=== PATIENT | female | born 1995 | race Caucasian/White ===

== ENCOUNTER 2016-05-31 09:53 | Outpatient (CLI) | payer BC, MEDICAID | END 2016-05-31 09:54 | disposition home or self-care (01) | DX: N63 Unspecified lump in breast (principal) ==

== ENCOUNTER 2016-06-03 13:08 | Outpatient (CLI) | payer BC, MEDICAID ==
[2016-06-03] MEDS ORDERED: BUPIVACAINE 0.25%-EPI 1:200000 PF 10 ML VIAL SUBQ ONE (15:16)
[2016-06-03] MEDS ORDERED: BUFFERED LIDOCAINE 10 ML SYRINGE IU ONE (15:16)
[2016-06-03] MEDS ORDERED: BUPIVACAINE 0.25%-EPI 1:200000 PF 30 ML VIAL SUBQ ONE (15:18)
[2016-06-04] MEDS ORDERED: BUPIVACAINE 0.25%-EPI 1:200000 PF 10 ML VIAL IM ONE (10:00)
[2016-06-04] MEDS ORDERED: BUPIVACAINE 0.25%-EPI 1:200000 PF 10 ML VIAL IM SCH (10:00)
== END 2016-06-03 13:09 | disposition home or self-care (01) ==
DX: N63 Unspecified lump in breast (principal)

== ENCOUNTER 2016-06-07 13:50 | Outpatient (CLI) | payer BC, MEDICAID | END 2016-06-07 13:51 | disposition home or self-care (01) | DX: R74.8 Abnormal levels of other serum enzymes (principal) ==

== ENCOUNTER 2018-09-07 09:36 | Outpatient (CLI) | payer MEDICAID ==
--- NOTE | 2018-09-07 11:44 | Ultrasound Report ---
Reason: FIBROADENOMA Procedure Date: 09/07/2018 Accession Number: [id number] / [id number] Procedure: US - Breast Unilateral Limited CPT Code: FULL RESULT: EXAM: Breast Unilateral Limited DATE: 09/07/2018 11:00 AM CLINICAL HISTORY: FIBROADENOMA. Increasing right breast pain. COMPARISON: Ultrasound 05/31/2016 and 06/03/2016. TECHNIQUE: Targeted ultrasound was performed of the right breast in the area of clinical concern at 11 o'clock and 6 cm distance from the nipple. Color Doppler was employed as appropriate. FINDINGS: Stable appearance of the biopsy documented right breast fibroadenoma 1.8 x 1.1 x 1.9 cm with a small echogenic focus centrally consistent with a biopsy clip. Adjacent to this is a similar appearing 1.4 x 1.4 x 0.9 cm hypoechoic avascular minimally lobulated mass with increased through transmission. In retrospect this may have been present on the 05/31/2016, measuring maximally 5 mm at that time. There is a and additional third small hypoechoic avascular mass adjacent to the other 2 masses measuring 1 x 0.7 x 0.4 cm. IMPRESSION: Probably Benign findings RECOMMENDATION: Follow-up right breast ultrasound in 6 months BIRADS CATEGORY 3: Probably Benign. Comment: I discussed with the patient the options of six-month follow-up ultrasound, ultrasound-guided core biopsy at this time, and surgical consult. The patient prefers six-month follow-up ultrasound. RADIA
== END 2018-09-07 09:37 | disposition home or self-care (01) ==
LOC: DI 09:36
PROVIDERS: ATTEND Physician Assistant
DX: D24.1 Benign neoplasm of right breast (principal); N64.4 Mastodynia
CPT/HCPCS: 76642

== ENCOUNTER 2019-05-31 08:00 | Outpatient (CLI) | payer MEDICAID ==
[2019-05-31 21:39] LABS: TRICHOMONAS VAGINALIS DNA NEGATIVE (NEGATIVE)
== END 2019-05-31 23:59 | disposition home or self-care (01) ==
LOC: LAB.R 08:00
PROVIDERS: ATTEND Family Medicine
DX: Z11.3 Encounter for screening for infections with a predominantly sexual mode of transmission (principal); N39.0 Urinary tract infection, site not specified
CPT/HCPCS: 87086; 87491; 87591; 87661

== ENCOUNTER 2021-07-17 17:10 | Outpatient (CLI) | payer MEDICAID ==
--- NOTE | 2021-07-18 08:50 | Ultrasound Report ---
PROCEDURE: OB First Trimester INDICATIONS: DATING/VIABILITY OUTSIDE/PRIOR DATING DATA: Last menstrual period (LMP): Unknown. First dating scan (date and location): July 17, 2021. Estimated date of delivery ([facility]) from first dating scan: January 22, 2022. TECHNIQUE: Real-time scanning was performed of the fetus and maternal pelvic organs, with image documentation. COMPARISON: None. FINDINGS: 2 hypoechoic lesions are seen, measuring up to 1.9 cm, compatible subchorionic hemorrhages . Embryo: [place]-rump length measures 6.66 cm, compatible with a 13 week gestation Heart rate: 160 bpm Measurement variability in dating: +/- 4 weeks by LMP, +/- 7 days by mean sac diameter (use before 6 weeks gestation if crown-rump length not able to be measured), +/- 5 days by crown-rump length (6-12 weeks gestation). Maternal organs: Ovaries demonstrates a right corpus luteum. IMPRESSION: Early live single intrauterine gestation. Reviewed by: Edmund Layton MD on 07/18/2021 8:48 AM PDT Approved by: Edmund Layton MD on 07/18/2021 8:48 AM PDT Station ID: [id number]
== END 2021-07-17 17:11 | disposition home or self-care (01) ==
LOC: DI 17:10
PROVIDERS: ATTEND Obstetrics & Gynecology
DX: Z34.01 Encounter for supervision of normal first pregnancy, first trimester (principal); Z3A.13 13 weeks gestation of pregnancy

== ENCOUNTER 2023-03-06 13:30 | Outpatient (CLI) | payer MEDICAID, OTHER | END 2023-03-06 13:45 | disposition home or self-care (01) | LOC: LAB.N 13:30 | PROVIDERS: ATTEND Family Medicine | DX: J02.9 Acute pharyngitis, unspecified (principal) | CPT/HCPCS: 87070; 87077 ==

== ENCOUNTER 2023-06-22 07:11 | Outpatient (CLI) | payer MEDICAID ==
--- NOTE | 2023-06-22 17:34 | Ultrasound Report ---
PROCEDURE: Abdomen Limited INDICATIONS: RUQ ABDOMINAL PAIN TECHNIQUE: Real-time focused scanning was performed of the abdomen, with image documentation. COMPARISONS: Abdomen ultrasound 03/05/2016, 01/08/2015 FINDINGS: Liver: Liver is normal in size and echogenic in echotexture. Echogenic focus is present in the right lobe measuring 2.0 x 3.1 x 2.4 cm. Gallbladder: Multiple mobile echogenic foci are present the largest measuring 9 mm. Wall thickness me asures 2 mm. Biliary ducts: Intrahepatic bile ducts are non-dilated. Extrahepatic bile duct caliber measures 3 m m. Normal is 6-7 mm or less in diameter, or 10 mm or less post-cholecystectomy. Pancreas: Visualized portions of the pancreas are sonographically normal. Right kidney: Normal in size and echotexture. Right kidney measures 9.3 cm long. No hydronephrosis o r nephrolithiasis. No solid masses. No complex renal cystic lesions which require follow-up. Aorta: Visualized aorta is normal in caliber at less than 3 cm. IVC: Intrahepatic inferior vena cava is patent. Miscellaneous: No free abdominal fluid. IMPRESSION: Hepatic steatosis. Focal area of increased echogenicity within the liver suspicious for hemangioma. This was not visuali zed on prior exam. Reviewed by: Cece Jordan MD on 06/22/2023 5:33 PM PDT Approved by: Cece Jordan MD on 06/22/2023 5:33 PM PDT Station ID: [id number]
== END 2023-06-22 07:12 | disposition home or self-care (01) ==
LOC: DI 07:11
PROVIDERS: ATTEND Nurse Practitioner Family
DX: K76.0 Fatty (change of) liver, not elsewhere classified (principal); R10.11 Right upper quadrant pain

== ENCOUNTER 2023-08-13 13:04 | Outpatient (CLI) | payer MEDICAID ==
[2023-08-13 17:47] LABS: BASOPHILS % (AUTO) 0.5 %; EOSINOPHILS # (AUTO) 0.2 10^3/uL (0.0-0.7); HCT - HEMATOCRIT 40.9 % (37.0-47.0); HGB - HEMOGLOBIN 13.8 g/dL (12.0-16.0); LYMPHOCYTES # (AUTO) 2.4 10^3/uL (1.5-3.5); LYMPHOCYTES % (AUTO) 31.4 %; MEAN CORPUSCULAR HEMOGLOBIN 29.9 pg (27.0-31.0); MEAN CORPUSCULAR HGB CONC 33.7 g/dL (32.0-36.0); MEAN CORPUSCULAR VOLUME 88.7 fL (81.0-99.0); MEAN PLATELET VOLUME 10.4 fL (7.9-10.8); MONOCYTES # (AUTO) 0.3 10^3/uL (0.0-1.0); MONOCYTES % (AUTO) 3.6 %; NEUTROPHILS # (AUTO) 4.7 10^3/uL (1.5-6.6); NEUTROPHILS % (AUTO) 62.4 %; PLT - PLATELET COUNT 217 10^3/uL (130-450); RED BLOOD COUNT 4.61 10^6/uL (4.20-5.40); WHITE BLOOD COUNT 7.6 x10^3/uL (4.8-10.8)
[2023-08-13 17:53] LABS: ALBUMIN 4.4 g/dL (3.2-5.5); ALBUMIN/GLOBULIN RATIO 2.2 (1.0-2.2); BILIRUBIN,TOTAL 0.6 mg/dL (0.2-1.0); CALCIUM 9.3 mg/dL (8.5-10.3); CREATININE 0.8 mg/dL (0.6-1.3); POTASSIUM 4.1 mmol/L (3.5-4.5); TOTAL PROTEIN 6.4 g/dL (6.4-8.9)
[2023-08-13 18:09] LABS: THYROID STIMULATING HORMONE 0.6 uIU/mL (0.34-5.60)
== END 2023-08-13 13:05 | disposition home or self-care (01) ==
LOC: LAB.N 13:04
PROVIDERS: ATTEND Nurse Practitioner Family
DX: R10.11 Right upper quadrant pain (principal)
CPT/HCPCS: 36415; 80053; 82150; 83690; 84443; 85025